=== PATIENT | female | born 2000 | race African-American/Black ===

== ENCOUNTER 2023-12-20 11:36 | Outpatient (CLI) | payer OTHER, SELFPAY ==
[2023-12-20 12:28] LABS: Basophils Percent Auto 0.2 % (0.2-1.2); Eosinophils Percent Auto 0.3 % (0-4.4); Hematocrit 39.8 % (37.0-47.0); Hemoglobin 13.1 g/dL (12.0-15.0); Immature Granulocyte Absolute 0.02 K/mm3 (0.00-0.031); Immature Granulocyte Percent A 0.3 % (0-0.5); Lymphocytes Absolute Auto 1.38 K/mm3 (0.9-3.2); Lymphocytes Percent Auto 22.2 % (18.3-44.2); Mean Corpuscular HGB Conc 32.9 g/dl (32-36); Mean Corpuscular Hemoglobin 28.5 pg (26-34); Mean Corpuscular Volume 86.5 fl (80-100); Mean Platelet Volume 12.6 fl (7.4-10.4); Monocytes Absolute Auto 0.5 K/mm3 (0.1-0.6); Monocytes Percent Auto 7.6 % (2.6-8.5); Neutrophils Absolute Auto 4.3 K/mm3 (1.3-6.7); Neutrophils Percent Auto 69.4 % (45.5-73.1); Platelet Count Result 152 k/mm3 (150-375); Red Cell Distribution Width 13.1 % (11.5-14.5); White Blood Count 6.2 K/mm3 (4.5-10.0)
[2023-12-20 13:02] LABS: Hepatitis B Surface Antigen Negative (Negative)
[2023-12-20 13:11] LABS: HIV 1/2 Ab P24 Ag Result Negative (Negative)
[2023-12-22 07:11] LABS: Rapid Plasma Reagin Non-Reactive (NonReactive)
[2023-12-22 15:18] LABS: CMV IgG Antibody <0.60 U/mL
[2024-01-06 02:39] LABS: CF Result NEGATIVE (NEGATIVE)
== END 2023-12-20 11:37 | disposition home or self-care (01) ==
PROVIDERS: Visit Provider Student in an Organized Health Care Education/Training Program
DX: N94.89 Other specified conditions associated with female genital organs and menstrual cycle (principal)
CPT/HCPCS: 36415; 81220; 81329; 84702; 85025; 85660; 86592; 86644; 86703; 86747; 86762; 86787; 86850; 86880; 86900; 86901; 86902; 87340; G0432

== ENCOUNTER 2023-12-23 15:39 | Outpatient (CLI) | payer OTHER, SELFPAY | END 2023-12-23 15:40 | disposition home or self-care (01) | LOC: ANHLAB 15:44 | PROVIDERS: Visit Provider Student in an Organized Health Care Education/Training Program | DX: N94.89 Other specified conditions associated with female genital organs and menstrual cycle (principal) | CPT/HCPCS: 87077; 87086; 87186 ==

== ENCOUNTER 2024-01-13 08:33 | Outpatient (CLI) | payer OTHER, SELFPAY | END 2024-01-13 08:34 | disposition home or self-care (01) | LOC: ANHLAB 08:37 | PROVIDERS: Visit Provider Student in an Organized Health Care Education/Training Program | DX: Z34.90 Encounter for supervision of normal pregnancy, unspecified, unspecified trimester (principal); Z3A.00 Weeks of gestation of pregnancy not specified | CPT/HCPCS: 36415; 86900; 86901; 86905 ==